=== PATIENT | female | born 1955 | race Caucasian/White ===

== ENCOUNTER 2016-12-01 20:14 | Emergency (ER) | payer MEDICAID ==
[2016-12-01 20:19] VITALS: TEMP 97.7
--- NOTE | 2016-12-01 20:34 | ED ---
Extremity Problem HPI - General Chief complaint: Extremity Problem,Nontraumatic Stated complaint: L leg pain Time Seen by Provider: 12/01/16 20:24 Source: patient, RN notes reviewed Mode of arrival: ambulatory Limitations: no limitations - History of Present Illness Initial comments: 60-year-old female presents emergency Department with chief complaint of left leg pain. Patient states she's had left leg pain, swelling a small area of redness over this last week. Patient states she has varicose veins states that she's never had a superficial thrombus redness or DVTs in the past. Patient denies any chest pain or shortness of breath. Patient states that she has been ignoring it feeling that it would go away by itself. Denies any paresthesias denies any trauma. - Related Data Home Medications Medication Instructions Recorded Confirmed Aspirin 325 mg PO QID PRN 12/01/16 12/01/16 Atorvastatin [Lipitor] 10 mg PO HS 12/01/16 12/01/16 Phentermine HCl [Adipex-P] 37.5 mg PO DAILY 12/01/16 12/01/16 Allergies Allergy/AdvReac Type Severity Reaction Status Date / Time phenazopyridine Allergy Rash/Hives Verified 12/01/16 20:25 [From Pyridium] sulfamethoxazole Allergy Dyspnea Verified 12/01/16 20:25 [From Bactrim] trimethoprim [From Bactrim] Allergy Dyspnea Verified 12/01/16 20:25 Review of Systems ROS Statement: Those systems with pertinent positive or pertinent negative responses have been documented in the HPI. ROS Other: All systems not noted in ROS Statement are negative. Past Medical History Past Medical History: Hyperlipidemia History of Any Multi-Drug Resistant Organisms: None Reported Past Surgical History: Adenoidectomy, Section, Tonsillectomy Past Psychological History: No Psychological Hx Reported Smoking Status: Former smoker Past Alcohol Use History: Rare Past Drug Use History: None Reported General Exam Limitations: no limitations General appearance: alert, in no apparent distress Respiratory exam: Present: normal lung sounds bilaterally. Absent: respiratory distress, wheezes, rales, rhonchi, stridor Cardiovascular Exam: Present: regular rate, normal rhythm, normal heart sounds. Absent: systolic murmur, diastolic murmur, rubs, gallop, clicks Extremities exam: Present: other (Left lower extremity there is small area of redness on medial aspect of left calf with moderate tenderness mild warmth there is tenderness the posterior calf and popliteal region there is mild edema noted pedal pulses are equal bilaterally) Skin exam: Present: warm, dry Course Vital Signs 12/01/16 20:15 Temperature 97.7 F Pulse Rate 68 Respiratory 16 Rate Blood Pressure 138/80 O2 Sat by Pulse 98 Oximetry Medical Decision Making - Medical Decision Making 60-year-old female presented for left leg, calf pain redness. Patient has superficial thrombophlebitis. There is no evidence of acute DVT. Patient be discharged at this time return parameters were discussed. Disposition Clinical Impression: Superficial thrombophlebitis Disposition: HOME SELF-CARE Condition: Stable Instructions: Superficial Thrombophlebitis (ED) Additional Instructions: Please return to the Emergency Department if symptoms worsen or any other concerns. Referrals: Albin Haynes DO [Primary Care Provider] - 1-2 days Time of Disposition: 21:30
--- NOTE | 2016-12-01 21:17 | US ---
EXAMINATION TYPE: US venous doppler duplex LE LT DATE OF EXAM: 12/01/2016 9:10 PM COMPARISON: NONE CLINICAL HISTORY: Pain. SIDE PERFORMED: Left TECHNIQUE: The lower extremity deep venous system is examined utilizing real time linear array sonog nimisha with graded compression, doppler sonography and color-flow sonography. VESSELS IMAGED: External Iliac Vein (EIV) Common Femoral Vein Deep Femoral Vein Greater Saphenous Vein * Femoral Vein Popliteal Vein Small Saphenous Vein * Proximal Calf Veins (* superficial vessels) Left Leg: Negative for DVT At the patients area of redness, left medial calf is some superficial thrombophlebitis. IMPRESSION: There is some superficial venous thrombus in the left calf. No evidence of deep venous th rombosis.
[2016-12-01 21:40] VITALS: BP 142/69; PULSE 60; RESP 18
== END 2016-12-01 21:39 | disposition home or self-care (01) ==
LOC: EC 20:14
DX: I80.02 Phlebitis and thrombophlebitis of superficial vessels of left lower extremity (principal); E78.5 Hyperlipidemia, unspecified; Z87.891 Personal history of nicotine dependence; Z79.82 Long term (current) use of aspirin; Z79.899 Other long term (current) drug therapy; Z88.2 Allergy status to sulfonamides; Z88.8 Allergy status to other drugs, medicaments and biological substances
CPT/HCPCS: 99283

== ENCOUNTER → 2016-12-11 | Outpatient (CLI) | payer MEDICAID ==
--- NOTE | 2016-12-12 14:03 | MM ---
Reason for exam: screening (asymptomatic). Last mammogram was performed 1 year and 1 month ago. History: Patient is postmenopausal and has history of other cancer at age 54. Physical Findings: A clinical breast exam by your physician is recommended on an annual basis and results should be correlated with mammographic findings. MG 3D Screening Mammo W/Cad Bilateral CC and MLO view(s) were taken. Prior study comparison: November 25, 2015, bilateral MG 3d screening mammo w/cad. November 04, 2012, bilateral digital screening mammo w/CAD. There are scattered fibroglandular densities. No significant changes when compared with prior studies. ASSESSMENT: Benign, BI-RAD 2 RECOMMENDATION: Routine screening mammogram of both breasts in 1 year.
== END | disposition home or self-care (01) ==
LOC: RADMAMWWP 13:37
PROVIDERS: ATTEND Family Medicine
DX: Z12.31 Encounter for screening mammogram for malignant neoplasm of breast (principal)
CPT/HCPCS: 77063; G0202

== ENCOUNTER → 2018-03-05 | Outpatient (CLI) | payer MEDICAID ==
--- NOTE | 2018-03-06 10:57 | MM ---
Reason for exam: screening (asymptomatic). Last mammogram was performed 1 year and 3 months ago. History: Patient is postmenopausal and has history of other cancer at age 54. Physical Findings: A clinical breast exam by your physician is recommended on an annual basis and results should be correlated with mammographic findings. MG 3D Screening Mammo W/Cad Bilateral CC and MLO view(s) were taken. Prior study comparison: December 11, 2016, bilateral MG 3d screening mammo w/cad. November 25, 2015, bilateral MG 3d screening mammo w/cad. The breast tissue is heterogeneously dense. This may lower the sensitivity of mammography. No suspicious abnormality. No significant changes when compared with prior studies. ASSESSMENT: Negative, BI-RAD 1 RECOMMENDATION: Routine screening mammogram of both breasts in 1 year.
== END | disposition home or self-care (01) ==
LOC: RADMAMWWP 15:17
PROVIDERS: ATTEND Family Medicine
DX: Z12.31 Encounter for screening mammogram for malignant neoplasm of breast (principal)
CPT/HCPCS: 77063; 77067

== ENCOUNTER → 2018-08-14 | Outpatient (CLI) | payer MEDICAID ==
--- NOTE | 2018-08-14 10:39 | XR ---
EXAMINATION TYPE: XR knee complete LT DATE OF EXAM: 08/14/2018 CLINICAL HISTORY: Posterior knee pain. TECHNIQUE: Three views of the left knee are obtained. COMPARISON: None. FINDINGS: There is no acute fracture/dislocation evident in the left knee. Moderate narrowing and sp urring medial tibial femoral compartment is present. There is mild narrowing and spurring patellofem oral compartment . Increased density suprapatellar bursa is suggestive of moderate size joint effusio n. IMPRESSION: As above.
== END | disposition home or self-care (01) ==
LOC: RADXRMAIN 10:00
PROVIDERS: ATTEND Family Medicine
DX: M17.12 Unilateral primary osteoarthritis, left knee (principal)

== ENCOUNTER 2019-03-19 03:31 | Emergency (ER) | payer MEDICAID ==
[2019-03-19 03:42] VITALS: BP 153/94; PULSE 79; RESP 20; TEMP 98.6
--- NOTE | 2019-03-19 03:59 | ED ---
Lower Extremity Injury HPI - General Chief Complaint: Extremity Injury, Lower Stated Complaint: Rt knee pain Time Seen by Provider: 03/19/19 03:34 Source: patient Mode of arrival: ambulatory Limitations: no limitations - History of Present Illness Initial Comments: Val is a pleasant 63-year-old female who presents the emergency department today for evaluation of atraumatic right-sided knee pain. Patient reports that yesterday she was walking out of work when she had a pop in her knee, she states that since then she's had some pain in her knee. Pain is worse when walking up or downstairs, patient states that she had to go downstairs to get in the bathtub to soak her knee in the stairs were most painful movement. Patient hasn't noticed any swelling or redness of the knee. She does have a history of osteoarthritis which is more prominent in her right knee than her left. Patient reports that the pain improved with Aspercreme. She also has naproxen at home but hadn't taken any prior to arrival. She has been referred to Dr. Sailaja Henriquez for orthopedics for evaluation of her arthritis in her left knee but has not yet followed up. - Related Data Home Medications Medication Instructions Recorded Confirmed Aspirin 325 mg PO QID PRN 12/01/16 12/01/16 Atorvastatin [Lipitor] 10 mg PO HS 12/01/16 12/01/16 Phentermine HCl [Adipex-P] 37.5 mg PO DAILY 12/01/16 12/01/16 Allergies Allergy/AdvReac Type Severity Reaction Status Date / Time phenazopyridine Allergy Rash/Hives Verified 03/19/19 03:42 [From Pyridium] sulfamethoxazole Allergy Dyspnea Verified 03/19/19 03:42 [From Bactrim] trimethoprim [From Bactrim] Allergy Dyspnea Verified 03/19/19 03:42 Review of Systems ROS Statement: Those systems with pertinent positive or pertinent negative responses have been documented in the HPI. ROS Other: All systems not noted in ROS Statement are negative. Past Medical History Past Medical History: Hyperlipidemia History of Any Multi-Drug Resistant Organisms: None Reported Past Surgical History: Adenoidectomy, Section, Tonsillectomy Past Psychological History: No Psychological Hx Reported Smoking Status: Former smoker Past Alcohol Use History: Rare Past Drug Use History: None Reported General Exam - General Exam Comments Initial Comments: Physical Exam GENERAL: Patient is well-developed and well-nourished. Patient is nontoxic and well-hydrated and is in no distress. HENT: Normocephalic, Atraumatic. EYES: PERRL, EOMI PULMONARY: Unlabored respirations. CARDIOVASCULAR: RRR Warm and well perfused extremities ABDOMEN: Non-distended SKIN: No rashes or bruising : Deferred NEUROLOGIC: Alert and oriented Normal speech Normal gait MUSCULOSKELETAL: Moving all extremities with no apparent injury Right knee with no swelling, negative Elizabeth and Marina's tests No lower extremity edema or signs of DVT Palpable Mays cyst PSYCHIATRIC: No SI/HI Limitations: no limitations Course Vital Signs 03/19/19 03:40 Temperature 98.6 F Pulse Rate 79 Respiratory 20 Rate Blood Pressure 153/94 O2 Sat by Pulse 98 Oximetry Medical Decision Making - Medical Decision Making Patient was seen and evaluated, history is obtained from patient, history is consistent with arthritic pain, x-ray was ordered with no acute findings, there is evidence of patellofemoral arthritis which is consistent with the patient's pain being worse walking up and down stairs. Supportive care was discussed. Advised patient to follow up with primary care for further evaluation possible follow-up with orthopedics to discuss injections into the knee. All questions pertaining care were answered return parameters discussed patient discharged home in stable condition. Disposition Clinical Impression: Arthritis Disposition: HOME SELF-CARE Condition: Stable Instructions (If sedation given, give patient instructions): Osteoarthritis (DC) Is patient prescribed a controlled substance at d/c from ED?: No Referrals: Albin Haynes DO [Primary Care Provider] - 1-2 days
--- NOTE | 2019-03-19 04:05 | XR ---
EXAMINATION TYPE: XR knee complete RT DATE OF EXAM: 03/19/2019 COMPARISON: NONE HISTORY: Knee pain TECHNIQUE: 3 views FINDINGS: There is mild spurring of the femoral and tibial condyles. I see no fracture nor dislocatio n. There is narrowing and spurring at the patellofemoral joint. There is no definite joint effusion. IMPRESSION: There is some osteoarthritis mainly in the patellofemoral joint. No fracture seen.
== END 2019-03-19 04:53 | disposition home or self-care (01) ==
LOC: EC 03:31
DX: M17.0 Bilateral primary osteoarthritis of knee (principal); M71.21 Synovial cyst of popliteal space [Baker], right knee; E78.5 Hyperlipidemia, unspecified; Z87.891 Personal history of nicotine dependence; Z88.2 Allergy status to sulfonamides; Z88.6 Allergy status to analgesic agent; Z79.82 Long term (current) use of aspirin; Z79.899 Other long term (current) drug therapy
CPT/HCPCS: 99283

== ENCOUNTER → 2019-04-30 | Outpatient (CLI) | payer MEDICAID ==
--- NOTE | 2019-05-01 11:38 | MM ---
Reason for exam: screening (asymptomatic). Last mammogram was performed 1 year and 2 months ago. History: Patient is postmenopausal and has history of other cancer at age 54. Physical Findings: A clinical breast exam by your physician is recommended on an annual basis and results should be correlated with mammographic findings. MG 3D Screening Mammo W/Cad Bilateral CC and MLO view(s) were taken. Prior study comparison: March 05, 2018, bilateral MG 3d screening mammo w/cad. December 11, 2016, bilateral MG 3d screening mammo w/cad. There are scattered fibroglandular densities. No suspicious abnormality. No significant changes when compared with prior studies. ASSESSMENT: Negative, BI-RAD 1 RECOMMENDATION: Routine screening mammogram of both breasts in 1 year.
== END | disposition home or self-care (01) ==
LOC: RADMAMWWP 09:38
PROVIDERS: ATTEND Family Medicine
DX: Z12.31 Encounter for screening mammogram for malignant neoplasm of breast (principal)
CPT/HCPCS: 77063; 77067

== ENCOUNTER → 2019-10-03 | Outpatient (CLI) | payer MEDICAID | END | disposition home or self-care (01) | LOC: LABWHC1 09:42 | PROVIDERS: ATTEND Pediatrics Pediatric Infectious Diseases | DX: U07.1 COVID-19 (principal) | CPT/HCPCS: 87635 ==

== ENCOUNTER → 2019-10-31 | Outpatient (CLI) | payer MEDICAID ==
--- NOTE | 2019-10-31 08:36 | MR ---
EXAMINATION TYPE: MR knee RT wo con DATE OF EXAM: 10/31/2019 COMPARISON: Outside right knee x-ray April 11, 2019. HISTORY: R knee pain , effusion, possible medial meniscal tear, moderate to advanced patellofemoral j oint osteoarthritis off per order. Pain and swelling per patient. TECHNIQUE: Multiplanar, multisequence images of the knee is performed without IV contrast. FINDINGS: MEDIAL MENISCUS: Marked abnormal appearance to the medial meniscus with medial extrusion and large te ar through the central body and posterior horn. LATERAL MENISCUS: Posterior horn is intact without tear. Anterior horn toward central body has horizo ntal increased signal probably extending to superior articular surface sagittal image 23. CRUCIATE LIGAMENTS: The anterior and posterior cruciate ligaments are intact and unremarkable. COLLATERAL LIGAMENTS: The medial collateral ligament and lateral collateral ligament complex are inta ct. Fluid signal surrounds the medial collateral ligament complex EXTENSOR MECHANISM: Visualized quadriceps and patellar tendons are intact. EFFUSION: Moderate to large size suprapatellar joint effusion with originating consistent with chroni c synovitis. POPLITEAL CYST: Moderate to large size popliteal/olivares cyst measuring 7.3 x 3.9 cm sagittal image 7 t hat has some septations and some surrounding fluid along the inferior aspect. TRICOMPARTMENT SPACES: Moderate to severe patellofemoral joint narrowing and spurring. Moderate to se stephanie medial tibiofemoral compartment narrowing with moderate spurring. Mild to moderate narrowing and moderate spurring lateral tibiofemoral compartment. CARTILAGE: Significant full thickness chondromalacia along the posterior patellar pole with little re sidual cartilage. Full thickness cartilaginous loss medial tibiofemoral compartment. BONE MARROW SIGNAL: Areas of heterogeneous diminished T1 and increased T2 signal most prominent media l tibiofemoral compartment along sites of full-thickness cartilaginous loss. Some subchondral cystic change at the tibial condyles. OTHER: No additional significant abnormality is appreciated. IMPRESSION: 1. Fairly advanced tricompartment degenerative changes as detailed above greatest patellofemoral and medial tibiofemoral compartments. 2. Complex full-thickness tear through the medial meniscus involving central body and posterior horn most likely on basis of advanced degenerative change. 3. Mild MCL sprain injury. 4. At least intrasubstance suspected full-thickness tear anterior horn into central body of the later al meniscus. 5. Moderate to large-sized suprapatellar joint effusion with chronic synovitis. 6. Moderate to large size leaking septated popliteal cyst.
== END | disposition home or self-care (01) ==
LOC: RADMRIMAIN 07:33
PROVIDERS: ATTEND Orthopaedic Surgery Sports Medicine
DX: S83.231A Complex tear of medial meniscus, current injury, right knee, initial encounter (principal); S83.411A Sprain of medial collateral ligament of right knee, initial encounter; M65.88 Other synovitis and tenosynovitis, other site; M71.21 Synovial cyst of popliteal space [Baker], right knee; M17.11 Unilateral primary osteoarthritis, right knee

== ENCOUNTER → 2019-12-10 | Outpatient (CLI) | payer MEDICAID ==
[2019-12-10 13:32] LABS: Appearance,Urine Clear (Clear); Bilirubin,Urine Negative (Negative); Blood,Urine Negative (Negative); Color,Urine Yellow; Glucose,Urine (UA) Negative (Negative); Ketones,Urine Negative (Negative); Leukocyte Esterase,Urine Negative (Negative); Nitrite,Urine Negative (Negative); PH, Urine 5.5 (5.0-8.0); Protein,Urine Negative (Negative); Specific Gravity,Urine 1.024 (1.001-1.035); Urobilinogen,Urine <2.0 mg/dL (<2.0)
[2019-12-10 13:35] LABS: HCT 42.9 % (34.0-46.0); HGB 14.2 gm/dL (11.4-16.0); MCH 31.3 pg (25.0-35.0); MCHC 33.1 g/dL (31.0-37.0); MCV 94.7 fL (80.0-100.0); Mean Platelet Volume 8.1; Platelet Count 229 k/uL (150-450); RBC 4.53 m/uL (3.80-5.40); RDW 12.8 % (11.5-15.5); WBC 5.7 k/uL (3.8-10.6)
[2019-12-10 13:45] LABS: Partial Thromboplastin Time 22.8 sec (22.0-30.0)
[2019-12-10 13:48] LABS: ALT 25 U/L (4-34); AST 32 U/L (14-36); African American GFR (CKD) >90 (>60 ml/min/1.73 sqM); Albumin 4.8 g/dL (3.5-5.0); Alkaline Phosphatase 92 U/L (38-126); Anion Gap 9 mmol/L; Blood Urea Nitrogen 18 mg/dL (7-17); Calcium 10.4 mg/dL (8.4-10.2); Carbon Dioxide 28 mmol/L (22-30); Chloride 103 mmol/L (98-107); Glucose 96 mg/dL (74-99); Non-African American GFR(CKD) >90 (>60 ml/min/1.73 sqM); Potassium 4.5 mmol/L (3.5-5.1); Sodium 140 mmol/L (137-145); Total Bilirubin 0.8 mg/dL (0.2-1.3); Total Protein 7.7 g/dL (6.3-8.2)
== END | disposition home or self-care (01) ==
LOC: LABPAT 11:16
PROVIDERS: ATTEND Orthopaedic Surgery Sports Medicine
DX: Z01.818 Encounter for other preprocedural examination (principal)
CPT/HCPCS: 36415; 80053; 81003; 85027; 85610; 85730; 87070

== ENCOUNTER 2019-12-18 07:31 | Day surgery (SDC) | payer MEDICAID ==
[2019-12-15 11:11] VITALS: BMI 37.8
[~2019-12-18 07:31] MED LIST: ACETAMINOPHEN TAB 500 MG TAB PO ONE; GABAPENTIN 300 MG CAP PO ONE; MELOXICAM 7.5 MG TAB PO ONE; ONDANSETRON 4 MG/2 ML VIAL IVP ONE; TRANEXAMIC ACID 1,000 MG in SODIUM CHLORIDE 0.9% 100 ML IVPB ONE; fentaNYL (PF) 50 MCG/ML 2 ML AMP IV PRN
[2019-12-18] MEDS ORDERED: MIDAZOLAM 2 MG/2 ML VIAL IV ONE (08:18)
[2019-12-18] MEDS ORDERED: ONDANSETRON 4 MG/2 ML VIAL ONE (08:30)
[2019-12-18] MEDS ORDERED: ACETAMINOPHEN TAB 500 MG TAB ONE (08:30)
[2019-12-18] MEDS: LACTATED RINGERS 1,000 ML IV SCH ×4 (08:38→21:15)
[2019-12-18] MEDS ORDERED: LIDOCAINE 1% (10MG/ML) FOR IV START INTRADERMA ONE (08:39)
--- NOTE | 2019-12-18 08:41 | P.ANPRN ---
Procedure Note - Anesthesia - Nerve Block Performed Right Adductor Canal Infusion Time Out Performed: Yes Date of Procedure: 12/18/19 Procedure Start Time: :18 Procedure Stop Time: :28 Location of Patient: PreOp Indication: Acute Post-Operative Pain, Requested by Surgeon Sedation Type: Sedate with meaningful contact maintained Preparation: Sterile Prep, Sterile Dressing Position: Supine Catheter: Indwelling Needle Types: Pajunk Needle Gauge: 21 Ultrasound used to visualize needle placement: Yes Ultrasound used to observe medication spread: Yes Blood Aspirated: No Pain Paresthesia on Injection Noted: No Resistance on Injection: Normal Image Stored and Saved: Yes Events: Uneventful and Well Tolerated (ropi .5% 20cc plus dexamethasone 4mg)
[2019-12-18] MEDS ORDERED: TRANEXAMIC ACID 1,000 MG/10 ML VIAL ONE (09:23)
[2019-12-18] MEDS ORDERED: MIDAZOLAM 2 MG/2 ML VIAL ONE (09:23)
[2019-12-18] MEDS ORDERED: SODIUM CHLORIDE 0.9% 100 ML BAG ONE (09:23)
[2019-12-18] MEDS ORDERED: fentaNYL (PF) 50 MCG/ML 2 ML AMP ONE (09:23)
[2019-12-18] MEDS ORDERED: PROPOFOL 10 MG/ML 20 ML VIAL IV ONE (09:23)
[2019-12-18] MEDS ORDERED: ceFAZolin 3,000 MG in SODIUM CHLORIDE 0.9% IRRIGATIO 3,000 ML IRRIGATION ONE (09:28)
[2019-12-18] MEDS: ROPIVACAINE 246.25 MG, EPINEPHrine 0.5 MG, KETOROLAC 30 MG, cloNIDine HCL/PF 80 MCG, WA... MISCELLANE ONE ×10 (09:58→10:30)
[2019-12-18] MEDS ORDERED: LACTATED RINGERS 1,000 ML IV ONE (11:13)
[2019-12-18] MEDS ORDERED: ROPIVACAINE 0.2%-NS ON-Q PUMP 1,090 MG, EMPTY PAIN BALL 1 EACH MISCELLANE PRN (11:26)
[2019-12-18] MEDS ORDERED: ACETAMINOPHEN TAB 325 MG TAB PO PRN (11:32)
[2019-12-18] MEDS ORDERED: diazePAM 5 MG TAB PO PRN (11:32)
[2019-12-18] MEDS ORDERED: NA PHOS,M-B/NA PHOS,DI-BA 133 ML ENEMA RECTAL PRN (11:32)
[2019-12-18] MEDS ORDERED: traMADol 50 MG TAB PO PRN (11:32)
[2019-12-18] MEDS ORDERED: HYDROmorphone 1 MG/ML 1 ML SYRINGE IVP PRN (11:32)
[2019-12-18] MEDS ORDERED: NALOXONE 0.4 MG/ML 1 ML VIAL IV PRN (11:32)
[2019-12-18] MEDS ORDERED: ONDANSETRON 4 MG/2 ML VIAL IVP PRN (11:32)
[2019-12-18] MEDS ORDERED: bisacodyL 10 MG SUPP RECTAL PRN (11:32)
[2019-12-18] MEDS ORDERED: HYDROmorphone 0.5 MG/0.5 ML SYRINGE IVP PRN ×2 (11:32)
[2019-12-18] MEDS ORDERED: MAGNESIUM HYDROXIDE 2,400 MG/10 ML CUP PO PRN (11:32)
[2019-12-18] MEDS ORDERED: TEMAZEPAM 15 MG CAP PO PRN (11:32)
--- NOTE | 2019-12-18 11:50 | XR ---
EXAMINATION TYPE: XR knee limited RT DATE OF EXAM: 12/18/2019 COMPARISON: 03/19/2019 TECHNIQUE: Two views submitted HISTORY: Post op FINDINGS: There is a prosthetic knee in near anatomic alignment. There is soft tissue edema and emphysema. IMPRESSION: 1. Postoperative change. Appears in near-anatomic alignment
--- NOTE | 2019-12-18 15:53 | OP ---
OPERATIVE REPORT DATE OF PROCEDURE: 12/18/2019 SURGEON: Carmelo Lockwood. GENERAL ACCOUNTANT: Kuldeep WOOTEN. PREOPERATIVE DIAGNOSIS: Right knee osteoarthrosis. POSTOPERATIVE DIAGNOSIS: Right knee osteoarthrosis. OPERATION: Right total knee arthroplasty. ANESTHESIA: Spinal sedation. ESTIMATED BLOOD LOSS: 100 mL. TOURNIQUET: Tourniquet time was 44 minutes at 250 mmHg. COMPLICATIONS: None apparent. DRAINS: None. DISPOSITION: Postanesthesia care unit. INDICATIONS: Val is a 64-year-old female with longstanding history of right knee pain. History and physical examination are consistent with advanced right knee osteoarthrosis. She has been through significant nonoperative management up to this point. Further treatment options were discussed and she decided to go for the right total knee arthroplasty. The risks of procedure were discussed with her in detail. These risks include, but are not limited to risk of infection, nerve damage, bleeding, pain, and a small risk of deep vein thrombosis which could lead to fatal pulmonary embolism. There is also risk of loosening of the implant which could require revision operation. The patient understands these risks. All of her questions were answered to her satisfaction. Appropriate informed consent was obtained. DESCRIPTION OF PROCEDURE: Patient identified in the preoperative holding area. Surgical sites marked by both the patient and myself. She was given 2 g of Ancef IV for prophylactic purposes. She was then transferred to the operative suite. She was placed supine on the operative table. Spinal anesthetic was then administered and dosed per the anesthesia without apparent complication. Examination under anesthesia was then performed. The patient was 2-3 degrees shy of full extension. She had 95 degrees of flexion. Medial collateral ligament, lateral collateral ligament, and posterior cruciate ligaments were stable. Tourniquet was then placed high on the right upper thigh well-padded in preparation for surgery. The patient's right lower extremity was then prepped and draped in usual sterile fashion. Standard surgical pause was undertaken to ensure that we were operating on the correct site and that appropriate preoperative antibiotics have been given. All staff in the room were in agreement and we proceeded. The outlines of the patella marked with surgical pen. A planned 12 cm vertical incision centered over the patella was marked with surgical pen. Leg was then exsanguinated with an Esmarch dressing. The knee was then flexed and tourniquet inflated to 250 mmHg. The total tourniquet time for the procedure was 44 minutes. Incision was then made with a 10 blade scalpel. This dissection was carried down sharply of the overlying fascia. Great care was taken to minimize the skin flaps. The knee was then exposed using a standard medial parapatellar approach. A small cuff of quadriceps tendon was then left for suturing. She was in a bit of varus preoperatively. A standard medial release was then made. Superficial medial collateral ligament dissected off the bone around the posterior aspect of the proximal tibia. The medial meniscus was then excised as well. The lateral meniscus was also released anteriorly. The leg was then externally rotated. The patella was everted and the knee was flexed. Retractors were then placed to protect the collateral ligaments. I then proceeded to remove the infrapatellar fat pad. This was excised sharply tangentially with fibers of the patellar tendon. I then proceeded to remove peripheral osteophytes. This was done with a rongeur. I then proceed with the distal femoral resection. She did have near full extension. A planned 9 mm resection was then done. The femoral canal was then entered in the midline of the femur, approximately 10 mm anterior to the origin of posterior cruciate ligament. The kim was then advanced down the center of the femur and placed intramedullary. Based on the preoperative radiographs, the angle between the anatomic and mechanical axis of the femur was approximately 4-5 degrees. The valgus angle of the distal femoral cutting guide was then set at 4 degrees for the right knee. The distal femoral cutting guide was then advanced over the intramedullary kim. This was seated firmly against the femur. I then as mentioned planned to take 9 mm off the distal femur. The cutting block was then secured onto the femur with pins. The jig was removed and the distal femoral cut was made through the slot of the block. The pins then removed. The distal cutting block was removed. The accuracy of this femoral cuts was checked with 2 flat bars. I then proceed to femoral sizing. Posterior referencing sizing guide was held firmly against the resected distal surface of the femur. The posterior condyles were resting on the posterior plane of the guide. The sizing site was then placed onto the anterior femur. The size measured a size 9. I then assessed for femoral rotation. Plan was for 3 degrees of external rotation. Three degrees of external rotation was placed onto the jig. These holes were then marked. I then confirmed the rotation by 3 separate methods. This done using epicondylar axis as well as Whitesides line and posterior referencing. Deemed that the external rotation was proper. I then went forward placing the femoral cutting block. This was placed over the previously placed pin holes. The Corbin wing was then placed on the anterior slots to ensure that we would not notch the anterior femur with the anterior femoral cut. I then proceed with the anterior femoral cut. This was flush with the anterior cortex of the femur. Posterior cuts were then made by the anterior chamfer cut, the posterior chamfer cut. The cutting block was then removed. Throughout the resection, the collateral ligaments were protected with retractors. I then placed a trial size 9 femur. It is slightly wide mediolateral. The narrow fit much better and it fit flush with this end of the femur. The drill hole was then made. I then proceeded with the tibial cut. I planned for cruciate retaining knee. The guide was placed and set for varus valgus and for slope. I set for approximate 2 mm resection from the medial tibial plateau which was the lower side. I was happy with the alignment and the amount of resection. The cutting block was then pinned to the proximal tibia. The alignment kim was removed. The proximal tibia was resected with a reciprocating saw. Again this was done with retractors protecting the collateral ligaments as well as the posterior cruciate ligament. I then proceeded to evaluate the flexion-extension gaps. A 10 mm block was placed. The flexion-extension gaps were equal. I then proceeded to resection of the posterior osteophytes. Very minimal posterior osteophytes. This was done using a curved osteotome. This resected the posterior osteophytes. Posterior capsule stripping done off the posterior aspect of the femur at this time. The osteophytes were then removed. I then proceeded with resection of patella. The thickness of the patella was measured using the caliper. The thickness was 22 mm. The thickness of the anticipated patellar dome was taken into account. Resection was then performed and confirmed to be equal in 4 quadrants using a caliper. Approximately 14 mm of bone remained after resection. A 29 x 8 standard patellar trial was then placed. The holes drilled. The trial was then placed. I then proceeded with sizing tibial plate. A size D tibial plate fit very nicely. I then placed the trial femur, the tibial tray and patellar button. A 10 mm trial insert was also placed. The components fit very nicely. She had full extension and flexion. The extension and flexion gaps were equal and stable to both varus and valgus stress. The patella tracked appropriately. The tibial tray rotation was then marked with a Bovie. This was externally rotated properly. I then proceed with tibial preparation. First, the femoral holes removed femoral component. The tibial tray was then set for proper external rotation as well as mediolateral placement onto the tibia. It was then pinned into place. I then proceeded with punching the keel. I then decided to proceed with cementing of all of our components. The knee was thoroughly irrigated with sterile saline solution via pulse lavage. The lateral geniculate artery was identified and cauterized. All blood was removed from the bone of the tibia, femur, and patella with pulse lavage. I then proceeded with cementing. Two packs of antibiotic bone cement was prepared on the back table by the surgical rn. I then proceeded with cementing the tibia first. Cement was impacted in the keel as well as deeply seated in the bone. A second coat of cement was then placed. The tibia was then impacted into place. Excess cement was removed with Pramod's and Joker's. I then proceeded with cementing the femoral component. The femoral component was also cemented using standard technique. Excess cement was removed. A 10 mm trial insert was then placed into the knee. It was brought into full extension with a constant axial load placed until the cement had hardened. The patellar component was then cemented. This was held firmly with a compressive device until the cement had dried. When the cement had dried, the knee was taken out of extension. All excess cement was removed from around the prosthesis. I then trailed the new 10 mm insert. The flexion- extension gaps were appropriate. The knee was stable. It came in full extension. I decided to go forward with the 10 mm cross-linked cruciate-retaining tibial insert. Polyethylene was then placed onto the tibial tray and locked into place. The knee was then reduced. The knee was again further irrigated with sterile saline solution with antibiotic added. The tourniquet was then deflated. The total tourniquet time for the procedure was 44 minutes at 250 mmHg. Final components were Bart Persona size 9 narrow, cruciate-retaining femoral component size D tibial tray, a 10 mm medial congruent cruciate-retaining polyethylene insert, and a 29 x 8 patella. I then proceeded with closure. Again, the knee was thoroughly irrigated. The quadriceps tendon and the medial retinaculum were reapproximated with #2 Ethibond suture. The extensor mechanism was then closed with a running #2 Quill suture. Subcutaneous tissues were closed with 2-0 Vicryl interrupted suture. The skin was closed with a running 3-0 Quill suture. Dermabond was applied to the incision. Sterile compressive dressing was then applied. All sponge and needle counts were deemed correct prior to closure. The patient tolerated procedure without apparent complication. She was transferred to the recovery room in stable condition. MMODL / IJN: [id number] /
[2019-12-18] MEDS: HYDROcodone/APAP 5-325MG 1 EACH TAB PO PRN (18:07)
[2019-12-18 20:06] VITALS: PULSE 69
[2019-12-18] MEDS ORDERED: SENNOSIDES-DOCUSATE SODIUM 1 EACH TAB PO SCH (21:00)
[2019-12-18] MEDS: ASPIRIN 81 MG PO SCH (21:14)
[2019-12-19] MEDS: HYDROcodone/APAP 5-325MG 1 EACH TAB PO PRN (00:33)
[2019-12-19 03:31] VITALS: RESP 18
[2019-12-19] MEDS: HYDROcodone/APAP 10-325MG 1 EACH TAB PO PRN ×2 (06:19→12:01)
[2019-12-19 08:41] LABS: Basophils % (A) 0 %; Eosinophils # (A) 0.1 k/uL (0-0.7); Eosinophils % (A) 1 %; HGB 11.5 gm/dL (11.4-16.0); Lymphocytes # (A) 1.5 k/uL (1.0-4.8); Lymphocytes % (A) 22 %; MCHC 32.7 g/dL (31.0-37.0); MCV 94.7 fL (80.0-100.0); Monocytes # (A) 0.5 k/uL (0-1.0); Monocytes % (A) 7 %; Neutrophils # (A) 4.9 k/uL (1.3-7.7); Neutrophils % (A) 69 %; Platelet Count 187 k/uL (150-450); RDW 12.9 % (11.5-15.5); WBC 7.1 k/uL (3.8-10.6)
[2019-12-19 08:54] VITALS: BP 125/74; TEMP 98.8
[2019-12-19] MEDS: ASPIRIN 81 MG PO SCH (08:59)
--- NOTE | 2019-12-19 09:17 | P.PN ---
Progress Note - Text 12/18 712AM 64-year-old female status post total knee replacement. Patient has an On-Q pump for postop pain control with solution running at 8 mL an hour with a VAS of 2. Plan to continue On-Q pump infusion
[2019-12-19] MEDS ORDERED: MULTIVITAMINS, THERA 1 EACH TAB PO SCH (12:00)
--- NOTE | 2019-12-19 16:07 | P.CONS ---
History of Present Illness - Reason for Consult Consult date: 12/19/19 Medical management, sleep apnea, hyperlipidemia Requesting physician: Carmelo Lockwood - Chief Complaint Osteoarthritis right knee, failed conservative treatment - History of Present Illness This is 64-year-old female admitted with osteoarthritis of the right knee, failed outpatient conservative treatment, status post right total knee arthroplasty. Tolerated procedure well. Pain controlled. Passing flatus. Ambulating, tolerating exertion well, reported a little tenderness is more as she felt she overexerted it yesterday afternoon. Denies chest pain, palpitations or shortness of breath. Prior to inpatient admission patient had been treated with oral Keflex for possible prior UTI. Received IV antibiotics IP and has completed antibiotic treatment. Afebrile, normal WBC. VSS. Review of Systems ROS Statement: Those systems with pertinent positive or pertinent negative responses have been documented in the HPI. ROS Other: All systems not noted in ROS Statement are negative. Past Medical History Past Medical History: Hyperlipidemia Additional Past Medical History / Comment(s): HX BASAL CELL SKIN CANCER., USES C -PAP MACHINE, STATES TORN MENISCUS & BAKERS CYST-PAIN RIGHT KNEE. 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 Past Drug Use History: None Reported - Past Family History Brother(s) Family Medical History: Cancer Additional Family Medical History / Comment(s): LUNG CANCER Medications and Allergies Home Medications Medication Instructions Recorded Confirmed Type Acetaminophen [Tylenol Extra 1,000 mg PO TID PRN 12/15/19 12/18/19 History Strength] Cholecalciferol [Vitamin D3 (25 5,000 unit PO DAILY 12/15/19 12/18/19 History Mcg = 1000 Iu)] Glucosam/Chond/Hyalu/Cf Borate 1 each PO DAILY 12/15/19 12/18/19 History [Move Free Joint Health Tablet] Multivitamins, Thera [Multivitamin 1 tab PO DAILY 12/15/19 12/18/19 History (formulary)] Naproxen Sodium [Aleve] 220 mg PO BID PRN 12/15/19 12/18/19 History Cephalexin [Keflex] 500 mg PO Q8HR 12/18/19 12/18/19 History traMADol HCl [Ultram] 50 mg PO Q4HR PRN 12/18/19 12/18/19 History Aspirin [Adult Low Dose Aspirin EC] 81 mg PO BID #60 tablet. 12/19/19 Rx HYDROcodone/APAP 7.5-325MG [Barre 1 - 2 each PO Q6HR PRN #56 tab 12/19/19 Rx 7.5-325] Allergies Allergy/AdvReac Type Severity Reaction Status Date / Time phenazopyridine Allergy Rash/Hives Verified 12/18/19 08:01 [From Pyridium] sulfamethoxazole Allergy Dyspnea Verified 12/18/19 08:01 [From Bactrim] trimethoprim [From Bactrim] Allergy Dyspnea Verified 12/18/19 08:01 Physical Exam Vitals: Vital Signs Temp Pulse Resp BP Pulse Ox 12/19/19 08:00 69 18 12/19/19 07:40 98.8 F 67 18 125/74 95 12/19/19 01:40 98.6 F 69 18 97/56 97 12/18/19 19:20 97.8 F 69 20 130/80 96 12/18/19 16:00 54 L 56 H Intake and Output 12/19/19 12/19/19 12/19/19 06:59 14:59 22:59 Intake Total 800 540 Balance 800 540 Intake: Intake, IV Titration 800 Amount Lactated Ringers 1,000 ml 800 @ 100 mls/hr IV .Q10H [facility] Rx#:[id number] Oral 540 Other: Voiding Method Toilet # Voids 1 1 PHYSICAL EXAM: VITAL SIGNS: As above GENERAL: Sitting up in bed, no acute distress HEENT: Conjunctivae normal. eyes normal. Oral mucosa moist NECK: No JVD. No thyroid enlargement. No LNs CARDIOVASCULAR: S1, S2 regular.. No murmur RESPIRATION: Breath sounds diminished in the bases. No rhonchi or crackles. No bronchial breathing. ABDOMEN: Soft, nontender . No guarding. no masses palpable. No ascites, No hepatosplenomegaly.Bowel sounds heard. LEGS: Right knee dressing clean dry and intact with minimal edema. No calf tenderness, positive pulses PSYCHIATRY: Alert and oriented X3, mood and affect normal. NERVOUS SYSTEM: Cranial N 2-12 grossly normal. Moves all 4 limbs. No focal deficits. Strength and sensation grossly intact.. Skin: Warm and dry, no rash Lymphatic system. No LN neck axilla. Results CBC & Chem 7: 12/19/19 07:43 Labs: Abnormal Lab Results - Last 24 Hours (Table) 12/19/19 Range/Units 07:43 RBC 3.70 L (3.80-5.40) m/uL Assessment and Plan Assessment: Osteoarthritis of right knee, failed conservative treatment, status post right total knee arthroplasty Recent possible UTI, completed antibiotic tx. Hyperlipidemia Obstructive sleep apnea, uses CPAP Obesity, BMI 38.9 Prior nicotine dependence History of basal cell CA Plan: Continue on current medication regime ,monitoring and symptomatic treatment. Aggressive pulmonary toileting with incentive spirometer reinforced. Pain management, anticoagulation as per orthopedic surgery. Discharge planning in progress. Follow up with Dr. Haynes in [address] Lockwood for the consult. The impression and plan of care has been dictated as directed. : I performed a history and examination of this patient, discussed the same with the dictator. I agree with the dictator's note ,documented as a scribe. Any additional findings or plans will be noted.
[2019-12-20] MEDS ORDERED: MULTIVITAMINS, THERA 1 EACH TAB PO SCH (09:00)
[2019-12-20] MEDS ORDERED: CHOLECALCIFEROL 1,000 UNIT TAB PO SCH (09:00)
== END 2019-12-19 14:40 | disposition home health service (06) ==
LOC: OR 07:31 → 4SSUR 14:04 → OR 12-19 14:40
PROVIDERS: ATTEND Orthopaedic Surgery Sports Medicine
DX: M17.11 Unilateral primary osteoarthritis, right knee (principal); G47.33 Obstructive sleep apnea (adult) (pediatric); E66.9 Obesity, unspecified; E78.5 Hyperlipidemia, unspecified; Z79.899 Other long term (current) drug therapy; Z88.2 Allergy status to sulfonamides; Z88.1 Allergy status to other antibiotic agents; Z88.8 Allergy status to other drugs, medicaments and biological substances; Z90.49 Acquired absence of other specified parts of digestive tract; Z90.89 Acquired absence of other organs; Z98.891 History of uterine scar from previous surgery; Z99.89 Dependence on other enabling machines and devices; Z85.828 Personal history of other malignant neoplasm of skin; Z87.891 Personal history of nicotine dependence; Z79.82 Long term (current) use of aspirin; Z68.38 Body mass index [BMI] 38.0-38.9, adult; Z80.1 Family history of malignant neoplasm of trachea, bronchus and lung
CPT/HCPCS: 97110; 97161; 64448; 76942; 85025; 88300; 73560; 27447; C1776; C1713; J2250; J0171; J0690 ×2; J2405; J3010; J1885; J2795 ×2; J2704; J0735

== ENCOUNTER → 2020-07-05 | Outpatient (CLI) | payer MEDICAID ==
--- NOTE | 2020-07-06 13:22 | MM ---
Reason for exam: screening (asymptomatic). Last mammogram was performed 1 year and 2 months ago. History: Patient is postmenopausal and has history of other cancer at age 54. Physical Findings: A clinical breast exam by your physician is recommended on an annual basis and results should be correlated with mammographic findings. MG 3D Screening Mammo W/Cad Bilateral CC and MLO view(s) were taken. Prior study comparison: April 30, 2019, bilateral MG 3d screening mammo w/cad. March 05, 2018, bilateral MG 3d screening mammo w/cad. There are scattered fibroglandular densities. No significant changes when compared with prior studies. ASSESSMENT: Benign, BI-RAD 2 RECOMMENDATION: Routine screening mammogram of both breasts in 1 year.
== END | disposition home or self-care (01) ==
LOC: RADMAMWWP 15:40
PROVIDERS: ATTEND Family Medicine
DX: Z12.31 Encounter for screening mammogram for malignant neoplasm of breast (principal)
CPT/HCPCS: 77063; 77067

== ENCOUNTER → 2021-10-28 | Outpatient (CLI) | payer MEDICAID ==
--- NOTE | 2021-10-31 11:30 | MM ---
Reason for Exam: Screening (asymptomatic). Last mammogram was performed 1 year(s) and 4 month(s) ago. Patient History: Menarche at age 12. First Full-Term at age 26. Postmenopausal. Other cancer, age 54. Risk Values: Luz Marina 5 year model risk: 1.5%. NCI Lifetime model risk: 6.6%. Prior Study Comparison: 03/05/2018 Bilateral Screening Mammogram, [facility]. 04/30/2019 Bilateral Screening Mammogram, [facility]. 07/05/2020 Bilateral Screening Mammogram, [facility]. Tissue Density: There are scattered fibroglandular densities. Findings: Analyzed By CAD. There is no suspicious group of microcalcifications or new suspicious mass in either breast. Focal nodular breast tissue stable. Stable appearing benign lymph node right axilla. Benign calcification noted. Overall Assessment: Benign, BI-RAD 2 Management: Screening Mammogram of both breasts in 1 year. A clinical breast exam by your physician is recommended on an annual basis and results should be correlated with mammographic findings. Electronically signed and approved by: Efra Hansen M.D. Radiologis
== END | disposition home or self-care (01) ==
LOC: RADMAMWWP 15:50
PROVIDERS: ATTEND Family Medicine
DX: Z12.31 Encounter for screening mammogram for malignant neoplasm of breast (principal); Z78.0 Asymptomatic menopausal state
CPT/HCPCS: 77063; 77067

== ENCOUNTER → 2022-03-08 | Outpatient (CLI) | payer MEDICAID ==
[2022-03-09 10:09] LABS: Appearance,Urine Cloudy (Clear); Bacteria,Urine Few /hpf; Bilirubin,Urine Negative (Negative); Blood,Urine Trace (Negative); Calcium Oxalate Crystals,Urine Few /hpf; Color,Urine Yellow; Glucose,Urine (UA) Negative (Negative); Ketones,Urine Negative (Negative); Leukocyte Esterase,Urine Large (Negative); Mucus,Urine Rare /hpf; Nitrite,Urine Negative (Negative); PH, Urine 5.5 (5.0-8.0); Protein,Urine Trace (Negative); RBC,Urine 5 /hpf (0-5); Specific Gravity,Urine 1.023 (1.001-1.035); Squamous Epithelial Cell,Urine <1 /hpf (0-4); Urobilinogen,Urine <2.0 mg/dL (<2.0); WBC,Urine 70 /hpf (0-5)
== END | disposition home or self-care (01) ==
LOC: LABWHC1 16:16
PROVIDERS: ATTEND Family Medicine
DX: N39.0 Urinary tract infection, site not specified (principal)
CPT/HCPCS: 81001; 87077; 87086; 87186

== ENCOUNTER → 2022-05-05 | Outpatient (CLI) | payer MEDICAID, OTHER | END | disposition home or self-care (01) | LOC: LABWHC1 18:06 | PROVIDERS: ATTEND Emergency Medicine | DX: Z20.822 Contact with and (suspected) exposure to COVID-19 (principal) | CPT/HCPCS: 87635 ==

== ENCOUNTER → 2023-06-07 | Outpatient (CLI) | payer MEDICAID ==
--- NOTE | 2023-06-09 16:45 | MM ---
Reason for Exam: Screening (asymptomatic). Last mammogram was performed 1 year(s) and 7 month(s) ago. Patient History: Menarche at age 12. First Full-Term at age 26. Postmenopausal. Patient has history of breast feeding. Other cancer, age 54. Risk Values: Luz Marina 5 year model risk: 1.6%. NCI Lifetime model risk: 6.2%. Prior Study Comparison: 11/25/2015 Bilateral Screening Mammogram, [facility]. 12/11/2016 Bilateral Screening Mammogram, [facility]. 03/05/2018 Bilateral Screening Mammogram, [facility]. 04/30/2019 Bilateral Screening Mammogram, [facility]. 07/05/2020 Bilateral Screening Mammogram, [facility]. 10/28/2021 Bilateral MG 3D screening mammo w/cad, [facility]. Tissue Density: There are scattered fibroglandular densities. Findings: Analyzed By CAD. The pattern is symmetrical and stable. No significant interval changes. Stable focal asymmetry within the mid left breast. No suspicious groups of microcalcifications, spiculated or lobular masses, architectural distortion or other secondary signs of malignancy are mammographically apparent. Overall Assessment: Benign, BI-RAD 2 Management: Screening Mammogram of both breasts in 1 year. A negative mammogram report should not preclude additional follow up of suspicious palpable abnormalities. Patient should continue monthly self breast exam. A clinical breast exam by your physician is recommended on an annual basis and results should be correlated with mammographic findings. Electronically signed and approved by: Tyree Flores D.O. Radiologis
== END | disposition home or self-care (01) ==
LOC: RADMAMWWP 13:09
PROVIDERS: ATTEND Family Medicine
DX: Z12.31 Encounter for screening mammogram for malignant neoplasm of breast (principal); Z78.0 Asymptomatic menopausal state
CPT/HCPCS: 77063; 77067

== ENCOUNTER → 2024-06-16 | Outpatient (CLI) | payer MEDICAID ==
--- NOTE | 2024-06-16 16:01 | MM ---
Reason for Exam: Screening (asymptomatic). Last screening mammogram was performed 12 month(s) ago. Patient History: Menarche at age 12. First Full-Term at age 26. Postmenopausal. Patient has history of breast feeding. Other cancer, age 54. Risk Values: Luz Marina 5 year model risk: 1.6%. NCI Lifetime model risk: 5.9%. Prior Study Comparison: 07/05/2020 Bilateral Screening Mammogram, [facility]. 10/28/2021 Bilateral MG 3D screening mammo w/cad, [facility]. 06/07/2023 Bilateral MG 3D screening mammo w/cad, [facility]. Tissue Density: There are scattered areas of fibroglandular density. Findings: Analyzed By CAD. There is no suspicious group of microcalcifications or new suspicious mass in either breast. Overall Assessment: Negative, BI-RAD 1 Management: Screening Mammogram of both breasts in 1 year. Patient should continue monthly self-breast exams. A clinical breast exam by your physician is recommended on an annual basis. This exam should not preclude additional follow-up of suspicious palpable abnormalities. Note on Luz Marina scores and lifetime risk: 1. A Luz Marina score greater than 3% is considered moderate risk. If this is the case, consider specialist referral to assess eligibility for a risk reducing agent. 2. If overall lifetime risk for the development of breast cancer is 20% or higher, the patient may qualify for future screening with alternating mammogram and breast MRI. [facility], , 06/16/2024 3:57 PM. Electronically signed and approved by: Chelsey Black M.D. Radiologist
== END | disposition home or self-care (01) ==
LOC: RADMAMWWP 12:41
PROVIDERS: ATTEND Family Medicine
DX: Z12.31 Encounter for screening mammogram for malignant neoplasm of breast (principal); Z78.0 Asymptomatic menopausal state; R92.323 Mammographic fibroglandular density, bilateral breasts
CPT/HCPCS: 77063; 77067